=== PATIENT | female | born 2000 | race African-American/Black ===

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

== ENCOUNTER 2020-03-07 15:55 | Emergency (ER) | payer MEDICAID ==
[~2020-03-07] VITALS: Ht 165.1 cm; Wt 90.0 kg
[~2020-03-07 15:55] MED LIST changes: +NITR100C62 PO; +OMEP20CA16 PO
[2020-03-07 16:00] VITALS: BP 139/65
[2020-03-07 16:20] LABS: BILIRUBIN,URINE NEGATIVE (NEG); CLARITY,URINE CLOUDY; COLOR,URINE YELLOW; NITRITE,URINE NEGATIVE (NEG); PH,URINE 6.5 (<5.0-8.0); PROTEIN,URINE 30 mg/dL (NEG-TRACE)
[2020-03-07 16:28] LABS: BACTERIA,URINE FEW /HPF (0-FEW); RBC,URINE 0 /HPF (0-2); WBC,URINE 0 /HPF (0-4)
[2020-03-07] MEDS ORDERED: KETOROLAC 30 MG/ML VIAL. IM ONE (16:45)
--- NOTE | 2020-03-07 16:46 | PHYS DOC ---
Past Medical History Past Medical History: Asthma, Migraines Additional Past Medical Histor: Recent vaginal delivery 2 months ago (12/2019), no complications (GRAHAM YEN DO) Past Surgical History: (GRAHAM YEN DO) Smoking Status: Never Smoker Alcohol Use: None Drug Use: Marijuana (GRAHAM YEN DO) General Adult EDM: Chief Complaint: Vaginal Pain, Rectal Pain HPI: HPI: Patient is a 19 year old female who presents with vaginal and rectal pain. Patient noticed the vaginal pain last night when she was attempting intercourse with her partner. After stopping and rolling to her side patient felt a "coffman of sharp pain" in her vagina. Rectal pain also flared up around the same time. Pt states she had a history of internal hemorrhoids. She recently had an uncomplicated vaginal delivery 2 months ago. Denies vaginal bleeding, pruritus, or discharge, but she did note a "stronger odor". She feels like it's harder to pass gas. Straining and increases in intra-abdominal pressure worsens both vagin al and rectal pain. She rates her pain as 7/10. Denies abdominal pain, dysuria/hematuria, back pain, nausea/vomiting, diarrhea, or blood in stool. Denies fever, cough, congestion, or sick contacts. She has had the same partner with no previous STI, partner is asymptomatic. (GRAHAM YEN DO) Review of Systems: Review of Systems: Constitutional: Denies fever or chills Eyes: Denies redness or eye pain HENT: Denies nasal congestion or sore throat Respiratory: Denies cough or shortness of breath Cardiovascular: Denies chest pain or palpitations GI: +rectal pain. Denies abdominal pain, nausea, vomiting, or diarrhea. : +vaginal pain, +vaginal odor. Denies dysuria or hematuria Musculoskeletal: Denies back pain or joint pain Integument: Denies rash or skin lesions Neurologic: Denies headache, focal weakness or sensory changes Complete systems were reviewed and found to be within normal limits, except as documented in this note. (GRAHAM YEN DO) Family History: Family History: Non-contributory (GRAHAM YEN DO) Allergies: Allergies: Allergies Coded Allergies Type Severity Reaction Last Updated Verified No Known Drug Allergies 01/27/16 No (GRAHAM YEN DO) Physical Exam: PE: Constitutional: Well developed, well nourished, no acute distress, non-toxic appearance HENT: Normocephalic, atraumatic Eyes: Conjunctiva normal, no discharge Neck: Normal range of motion, supple Lungs & Thorax: No respiratory distress, equal chest rise and fall Abdomen: Soft, diffuse tenderness to palpation of lower abdomen R>L : normal external female genitalia, white, thick discharge present around cervical os, hyperemic cervical os, cervical tenderness, normal external rectum Skin: Warm, dry, no erythema, no rash Back: No tenderness, no CVA tenderness Extremities: No tenderness, ROM intact, no edema Neurologic: Alert and oriented X 3, no focal deficits noted Psychologic: Affect normal, judgment normal (GRAHAM YEN DO) Course & Med Decision Making: Course & Med Decision Making Pertinent Labs and Imaging studies reviewed. (See chart for details) Pt is a previously healthy 19 year old female who presents with 1 day history of vaginal and rectal pain that started after attempting vaginal intercourse. Given history of vaginal pain and odor, performed pelvic exam and swabbed for STIs and BV/trich/yeast. Cervical motion tenderness and thick, white discharge noted on pelvic exam. Empirically treated with ceftriaxone and azithromycin as chlamydia/gonorrhea. Cultures pending. UA negative. Wet mount negative. Pain addressed. Pelvic US pending at this time. Sign out given to Dr. Montano for further evaluation and final disposition. Discussed current findings and plan with patient, who acknowledges understanding and agreement. (GRAHAM YEN DO) Dragon Disclaimer: Dragon Disclaimer: This electronic medical record was generated, in whole or in part, using a voice recognition dictation system. (GRAHAM YEN DO) Departure Departure Impression: Primary Impression: Pelvic pain Disposition: 01 DC HOME SELF CARE/HOMELESS Condition: STABLE Referrals: NON,STAFF (PCP) Patient Instructions: Pelvic Pain, Female, [id number] Additional Instructions: Please follow up closely with your POWDER NIPPER for further evaluation. No sexual activity until cultures have resulted. Take over the counter Tylenol and/or Ibuprofen for pain or discomfort. GRAHAM YEN DO Mar 07, 2020 16:46 SORAYA MONTANO MD Mar 07, 2020 20:40
[2020-03-07 17:12] LABS: U PREG PATIENT NEGATIVE (NEG)
[2020-03-07] MEDS ORDERED: AZITHROMYCIN 250 MG TABLET. PO ONE (17:15)
[2020-03-07] MEDS ORDERED: cefTRIAXone IM 250 MG VIAL IM ONE (17:15)
--- NOTE | 2020-03-07 20:30 | RAD ---
EXAMINATION: US PELVIS W/TV (PELVIC ULTRASOUND) HISTORY: CMT, pelvic pain TECHNIQUE: Sonography of the pelvis was performed by transvaginal and transabdominal (limited) techni ques. COMPARISON: 05/11/2018 FINDINGS: Uterus: 7.0 x 5.6 x 4.4 cm - Myometrium: Normal sonographic appearance. - Endometrium: 7 mm - Cervix: Normal Right ovary: 5.0 x 3.2 x 2.5 cm - 1.3 cm cystic lesion with thick echogenic wall and small internal nondependent avascular hypoechoge nicity. Arterial and venous flow is present throughout the ovary on color Doppler imaging with normal spectral waveforms. Left ovary: 2.3 x 1.8 x 1.8 cm - Normal sonographic appearance. Arterial and venous flow is present throughout the left ovary on col or Doppler imaging with normal spectral waveforms. Incidentally noted 2.1 x 1.0 x 1.3 cm circumscribe d avascular echogenic lesion in the left adnexa. Pelvic free fluid: Mild free fluid which appears slightly complex, predominantly in the left pelvis. IMPRESSION: 1.3 cm cystic lesion in the right ovary as described, nonspecific but could represent a resolving hem orrhagic cyst. Indeterminate 2.1 cm left adnexal lesion and mild slightly complex pelvic free fluid. Correlate clinically and consider nonemergent pelvic MRI for further evaluation as indicated. Electronically signed by: Fitz Stone DO (03/07/2020 8:27 PM) [facility]
[2020-03-09 21:18] LABS: GC PROBE Negative (Negative)
== END 2020-03-07 20:45 | disposition home or self-care (01) ==
LOC: ER 15:55
DX: R10.2 Pelvic and perineal pain (principal); J45.909 Unspecified asthma, uncomplicated; G43.909 Migraine, unspecified, not intractable, without status migrainosus; F12.90 Cannabis use, unspecified, uncomplicated; Z98.890 Other specified postprocedural states
CPT/HCPCS: 76830; 76856; 81001; 81025; 87491; 87591; 96372; 99284; J0696; J1885; Q0111

== ENCOUNTER 2020-08-16 16:49 | Observation (INO) | payer MEDICAID ==
[2020-08-16] MEDS ORDERED: IV RINGERS,LACTATED 1000ML 1,000 ML IV SCH (17:15)
[2020-08-16 17:34] LABS: BILIRUBIN,URINE NEGATIVE (NEG); CLARITY,URINE CLEAR; COLOR,URINE YELLOW; NITRITE,URINE NEGATIVE (NEG); PH,URINE 7.5 (<5.0-8.0); PROTEIN,URINE NEGATIVE (NEG-TRACE); UROBILINOGEN,URINE 0.2 mg/dL (0.2 mg/dL)
[2020-08-16 17:41] LABS: BACTERIA,URINE FEW /HPF (0-FEW); RBC,URINE 0 /HPF (0-2)
== END 2020-08-16 18:25 | disposition home or self-care (01) ==
LOC: 3 SO LND 16:49
PROVIDERS: ADMIT Obstetrics & Gynecology; ATTEND Obstetrics & Gynecology
DX: O34.62 Maternal care for abnormality of vagina, second trimester (principal); O99.891 Other specified diseases and conditions complicating pregnancy; M54.5 Low back pain; Z3A.26 26 weeks gestation of pregnancy
CPT/HCPCS: 81001; G0378; G0379

== ENCOUNTER 2020-12-29 15:11 | Emergency (ER) | payer MEDICAID ==
[~2020-12-29] VITALS: Ht 165.1 cm; Wt 91.2 kg
[2020-12-29 17:20] VITALS: BP 139/63
--- NOTE | 2020-12-29 17:59 | PHYS DOC ---
Past Medical History Past Medical History: Asthma Additional Past Medical Histor: Recent vaginal delivery 2 months ago (12/2019), no complications (CLAUDE DEJESUS APRN) Past Surgical History: (CLAUDE DEJESUS APRN) Smoking Status: Never Smoker Alcohol Use: None Drug Use: Marijuana (CLAUDE DEJESUS APRN) General Adult EDM: Chief Complaint: OTHER COMPLAINTS HPI: HPI: Patient is a 20 year old female who presents with vaginal odor and itching for 2 weeks. Patient states that she gave vaginal 7 weeks ago. Patient's denying abdominal pain. Patient denies any concerns for STDs. Patient states "I was concerned I might have bacterial vaginosis". "I did use Vagisil mosn-svn-lequjea because I was feeling a little itchy but that did not help". Patient denies medical history. (CLAUDE DEJESUS APRN) Review of Systems: Review of Systems: ROS At least 10 ROS systems have been reviewed and are negative except as documented in the HPI. General: Negative except as outlined in HPI above. Skin: Negative except as outlined in HPI above. HEENT: Negative except as outlined in HPI above. Neck: Negative except as outlined in HPI above. Respiratory: Negative except as outlined in HPI above.. Cardiovascular: Negative except as outlined in HPI above. Abdomen: Negative except as outlined in HPI above. : Negative except as outlined in HPI above. Back/MSK: Negative except as outlined in HPI above. Neuro: Negative except as outlined in HPI above. Psych: Negative except as outlined in HPI above. (CLAUDE DEJESUS APRN) Heart Score: C/O Chest Pain: No Risk Factors: Risk Factors: DM, Current or recent (<one month) smoker, HTN, HLP, family history of CAD, obesity. Risk Scores: Score 0 - 3: 2.5% MACE over next 6 weeks - Discharge Home Score 4 - 6: 20.3% MACE over next 6 weeks - Admit for Clinical Observation Score 7 - 10: 72.7% MACE over next 6 weeks - Early Invasive Strategies (CLAUDE DEJESUS APRN) Allergies: Allergies: Allergies Coded Allergies Type Severity Reaction Last Updated Verified No Known Drug Allergies 01/27/16 No (CLAUDE DEJESUS APRN) Physical Exam: PE: Constitutional: Well developed, well nourished, no acute distress, non-toxic appearance. [] HENT: Normocephalic, atraumatic, bilateral external ears normal, oropharynx moist, no oral exudates, nose normal. [] Eyes: PERRLA, EOMI, conjunctiva normal, no discharge. [] Neck: Normal range of motion, no tenderness, supple, no stridor. [] Cardiovascular:Heart rate regular rhythm, no murmur [] Lungs & Thorax: Bilateral breath sounds clear to auscultation [] Abdomen: Bowel sounds normal, soft, no tenderness, no masses, no pulsatile masses. [] Skin: Warm, dry, no erythema, no rash. [] Back: No tenderness, no CVA tenderness. [] Extremities: No tenderness, no cyanosis, no clubbing, ROM intact, no edema. [] Neurologic: Alert and oriented X 3, normal motor function, normal sensory function, no focal deficits noted. [] Psychologic: Affect normal, judgement normal, mood normal. [] (CLAUDE DEJESUS APRN) Current Patient Data: Labs: Laboratory Tests Test 12/29/20 17:36 POC Urine HCG, Qualitative Hcg negative (Negative) Vital Signs: Vital Signs Date Time Temp Pulse Resp B/P (MAP) Pulse Ox O2 Delivery O2 Flow Rate FiO2 12/29/20 17:20 98.4 57 16 139/63 (88) 100 Room Air 98.4 (CLAUDE DEJESUS APRN) EKG: EKG: [] (CLAUDE DEJESUS APRN) Radiology/Procedures: Radiology/Procedures: [] (CLAUDE DEJESUS APRN) Course & Med Decision Making: Course & Med Decision Making Pertinent Labs and Imaging studies reviewed. (See chart for details) [] 20-year-old female presents with vaginal odor and itching. Patient had a vaginal 7 weeks ago. Patient denies any complications at that time. Patient's denying abdominal pain. Vaginal wet prep obtained. Wet prep positive for clue cells and altered jigar. Patient has bacterial vaginosis. Discussed results with patient. Patient sent home on prescription for Flagyl. Advised patient to take prescription in full and as directed. Patient states that she understands discharge instructions. Patient is hemodynamically stable upon disposition (CLAUDE DEJESUS APRN) Course & Med Decision Making I have reviewed and was available for consultation in the emergency department for this patient that was seen by midlevel provider. Agree with plan. Elton Jacobs DO (ELTON JACOBS DO) Leanne Disclaimer: Leanne Disclaimer: This electronic medical record was generated, in whole or in part, using a voice recognition dictation system. (CLAUDE DEJESUS APRN) Departure Departure Impression: Primary Impression: Bacterial vaginosis Disposition: HOME / SELF CARE / HOMELESS Condition: STABLE Referrals: NO PCP (PCP) Patient Instructions: Bacterial Vaginosis, [facility] Additional Instructions: You are seen in the emergency room for vaginal odor and itching. Your test results came back positive for bacterial vaginosis. I am sending you home prescription. Please make sure you take the antibiotic in full and as directed. Scripts Metronidazole (FLAGYL) 500 Mg Tablet 1 TAB PO BID for bacterial vaginosis for 7 Days, #14 TAB Prov: CALUDE DEJESUS APRN 12/29/20 CLAUDE DEJESUS APRN Dec 29, 2020 17:59 ELTON JACOBS DO Dec 30, 2020 01:16
[2020-12-29] MEDS ORDERED: METR500T PO (19:26)
== END 2020-12-29 19:32 | disposition home or self-care (01) ==
LOC: ER 15:11
DX: N76.0 Acute vaginitis (principal); B96.89 Other specified bacterial agents as the cause of diseases classified elsewhere; J45.909 Unspecified asthma, uncomplicated
CPT/HCPCS: 81025; 99284; Q0111

== ENCOUNTER 2021-02-12 13:37 | Emergency (ER) | payer MEDICAID ==
[~2021-02-12] VITALS: Ht 165.1 cm; Wt 90.5 kg
[~2021-02-12 13:37] MED LIST changes: +METR500T PO
[2021-02-12 14:29] VITALS: BP 142/90
--- NOTE | 2021-02-12 14:49 | PHYS DOC ---
Past Medical History Past Medical History: Asthma Additional Past Medical Histor: preeclampsia Past Surgical History: Smoking Status: Never Smoker Alcohol Use: Occasionally Drug Use: Marijuana Social History Narrative: occasional General Adult EDM: Chief Complaint: VAGINAL PROBLEM HPI: HPI: Patient is a 20-year-old female who presents to the emergency department today for vaginal odor, irritation and itching that started 2 days ago. Patient reports that she had these symptoms last month following her menses and was diagnosed with bacterial. Patient is exactly the same and she is on her menses currently. Patient denies any pain, vaginal discharge, fevers, abdominal pain, concern for STDs. Review of Systems: Review of Systems: Constitutional: See HPI GI: See HPI : See HPI Heart Score: C/O Chest Pain: N/A Risk Factors: Risk Factors: DM, Current or recent (<one month) smoker, HTN, HLP, family history of CAD, obesity. Risk Scores: Score 0 - 3: 2.5% MACE over next 6 weeks - Discharge Home Score 4 - 6: 20.3% MACE over next 6 weeks - Admit for Clinical Observation Score 7 - 10: 72.7% MACE over next 6 weeks - Early Invasive Strategies Allergies: Allergies: Allergies Coded Allergies Type Severity Reaction Last Updated Verified No Known Drug Allergies 02/12/21 No Physical Exam: PE: Constitutional: Well developed, well nourished, no acute distress, non-toxic appearance. [] HENT: Normocephalic, atraumatic, bilateral external ears normal, oropharynx moist, no oral exudates, nose normal. [] Eyes: PERRL, EOMI, conjunctiva normal, no discharge. [] Neck: Normal range of motion, no tenderness, supple, no stridor. [] Cardiovascular:Heart rate regular rhythm, no murmur [] Lungs & Thorax: Bilateral breath sounds clear to auscultation [] Abdomen: Bowel sounds normal, soft, no tenderness, no masses, no pulsatile masses. [] Skin: Warm, dry, no erythema, no rash. [] Back: No tenderness, no CVA tenderness. [] Extremities: No tenderness, no cyanosis, no clubbing, ROM intact, no edema. [] Neurologic: Alert and oriented X 3, normal motor function, normal sensory function, no focal deficits noted. [] Psychologic: Affect normal, judgement normal, mood normal. [] Current Patient Data: Labs: Laboratory Tests Test 02/12/21 14:25 02/12/21 14:47 Urine Collection Type Unknown Urine Color Yellow Urine Clarity Clear Urine pH 6.5 Urine Specific Agar 1.020 Urine Protein 30 mg/dL Urine Glucose (UA) Negative mg/dL Urine Ketones (Stick) Negative mg/dL Urine Blood Moderate Urine Nitrite Negative Urine Bilirubin Negative Urine Urobilinogen Dipstick 1.0 mg/dL Urine Leukocyte Esterase Moderate Urine RBC Occ /HPF Urine WBC 1-4 /HPF Urine Squamous Epithelial Cells Mod /LPF Urine Bacteria 0 /HPF Urine Mucus Slight /LPF Bedside Urine HCG, Qualitative Hcg negative Vital Signs: Vital Signs Date Time Temp Pulse Resp B/P (MAP) Pulse Ox O2 Delivery O2 Flow Rate FiO2 02/12/21 14:29 99.0 60 16 142/90 (107) 100 Room Air 99.0 EKG: EKG: [] Radiology/Procedures: Radiology/Procedures: [] Course & Med Decision Making: Course & Med Decision Making Pertinent Labs and Imaging studies reviewed. (See chart for details) Patient presents to the emergency department for vaginal fishy odor and itching and irritation. She reports that she had the symptoms when she had her menses last month and was diagnosed with bacterial vaginosis. Patient reports that this feels exact same she is on her menstrual cycle again. Patient does not have any concern for STDs. I discussed performing a pelvic exam and swabs with patient but she chose to forego that and perform self swab for bacterial vaginosis and STIs. Patient's wet prep was positive for bacterial vaginosis and yeast. Patient had moderate leukocytes,1-4 WBC, no bacteria but moderate squamous cells, no urinary symptoms, likely contamination. Patient be discharged home with medication to treat her bacterial vaginosis. She was educated on cautionary instructions regarding medication use. I discussed with patient all findings and diagnostic testing as well as the need to follow-up with PCP for further evaluation and treatment or return to the ER if any new or worsening symptoms. Strict return precautions were also discussed at length. Patient voiced understanding and agreement with the plan. Patient is hemodynamically stable at the time of disposition. Dragon Disclaimer: Dragon Disclaimer: This electronic medical record was generated, in whole or in part, using a voice recognition dictation system. Departure Departure Impression: Primary Impression: Bacterial vaginosis Disposition: HOME / SELF CARE / HOMELESS Condition: GOOD Referrals: NO PCP (PCP) Patient Instructions: Bacterial Vaginosis Additional Instructions: You were seen in the emergency department for vaginal odor and itching. You were positive for bacterial vaginosis. This will be treated with metronidazole. Take this medication completely. Do not drink any alcohol with this medication as it will cause severe vomiting. You were also tested for gonorrhea chlamydia in the emergency department. You will be notified via telephone of those results when they become available. Please do not have any sexual intercourse until you receive your results. Follow-up with your primary care provider within a week if your symptoms persist. Return to the emergency department if you develop intractable nausea or vomiting, pain with urination, hematuria, abdominal pain, back pain, high fevers refractory to treatment or any new or worsening concerns. Scripts Metronidazole (METRONIDAZOLE) 500 Mg Tablet 1 TAB PO BID for 7 Days, #14 TAB 0 Refills Prov: CAROL HENSLEY APRN 02/12/21 CAROL HENSLEY APRN Feb 12, 2021 14:49
[2021-02-12 14:57] LABS: BILIRUBIN,URINE NEGATIVE (NEG); CLARITY,URINE CLEAR; COLOR,URINE YELLOW; NITRITE,URINE NEGATIVE (NEG); PH,URINE 6.5 (<5.0-8.0); PROTEIN,URINE 30 mg/dL (NEG-TRACE)
[2021-02-12 15:06] LABS: BACTERIA,URINE 0 /HPF (0-FEW); RBC,URINE OCC /HPF (0-2)
[2021-02-12] MEDS ORDERED: METR-34 PO (15:47)
[2021-02-15 23:07] LABS: GC PROBE Negative (Negative)
== END 2021-02-12 16:05 | disposition home or self-care (01) ==
LOC: ER 13:37
DX: N76.0 Acute vaginitis (principal); B96.89 Other specified bacterial agents as the cause of diseases classified elsewhere; J45.909 Unspecified asthma, uncomplicated
CPT/HCPCS: 81001; 81025; 87086; 87491; 87591; 99283; Q0111

== ENCOUNTER 2021-03-28 16:12 | Emergency (ER) | payer MEDICAID ==
[~2021-03-28] VITALS: Ht 165.1 cm; Wt 88.0 kg
[~2021-03-28 16:12] MED LIST changes: +METR-34 PO
[2021-03-28 20:15] VITALS: BP 162/102
--- NOTE | 2021-03-28 20:36 | PHYS DOC ---
Past Medical History Past Medical History: Asthma Additional Past Medical Histor: preeclampsia (GERTRUDE BRADY APRN) Past Surgical History: (GERTRUDE BRADY APRN) Smoking Status: Never Smoker Alcohol Use: Occasionally Drug Use: Marijuana (GERTRUDE BRADY APRN) General Adult EDM: Chief Complaint: FLU SYMPTOM HPI: HPI: Patient is a 20-year-old female that presents today with feeling like her ears are clogged. Patient states that on March 18, 2020 when she was diagnosed with COVID-19, she states over the last 2 to 3 days she has had increased popping and clogged feeling in her ears. She states that she has been taking some pxqf-oqi-ssbxxsx decongestants not on a regular basis but taking them as needed and she said that have not been helping. She states she is also been using some drops in her ears to think with earwax and she says that has not been helping. (GERTRUDE BRADY APRN) Review of Systems: Review of Systems: Constitutional: Denies fever or chills. [] Eyes: Denies change in visual acuity. [] HENT: Feeling like her ear is clogged Respiratory: Denies cough or shortness of breath. [] Cardiovascular: Denies chest pain or edema. [] GI: Denies abdominal pain, nausea, vomiting, bloody stools or diarrhea. [] : Denies dysuria. [] Musculoskeletal: Denies back pain or joint pain. [] Integument: Denies rash. [] Neurologic: Denies headache, focal weakness or sensory changes. [] Endocrine: Denies polyuria or polydipsia. [] Lymphatic: Denies swollen glands. [] Psychiatric: Denies depression or anxiety. [] (GERTRUDE BRADY APRN) Heart Score: C/O Chest Pain: N/A Risk Factors: Risk Factors: DM, Current or recent (<one month) smoker, HTN, HLP, family history of CAD, obesity. Risk Scores: Score 0 - 3: 2.5% MACE over next 6 weeks - Discharge Home Score 4 - 6: 20.3% MACE over next 6 weeks - Admit for Clinical Observation Score 7 - 10: 72.7% MACE over next 6 weeks - Early Invasive Strategies (GERTRUDE BRADY APRN) Allergies: Allergies: Allergies Coded Allergies Type Severity Reaction Last Updated Verified No Known Drug Allergies 02/12/21 No (GERTRUDE BRADY APRN) Physical Exam: PE: Constitutional: Well developed, well nourished, no acute distress, non-toxic appearance. [] HENT: Normocephalic, atraumatic, bilateral external ears normal, oropharynx moist, no oral exudates, nose normal, tympanic membranes membranes bulging no erythema noted, no earwax noted in the left ear small amount of earwax noted in the right ear Eyes: PERRLA, EOMI, conjunctiva normal, no discharge. [] Neck: Normal range of motion, no tenderness, supple, no stridor. [] Cardiovascular:Heart rate regular rhythm, no murmur [] Lungs & Thorax: Bilateral breath sounds clear to auscultation [] Abdomen: Bowel sounds normal, soft, no tenderness, no masses, no pulsatile masses. [] Skin: Warm, dry, no erythema, no rash. [] Back: No tenderness, no CVA tenderness. [] Extremities: No tenderness, no cyanosis, no clubbing, ROM intact, no edema. [] Neurologic: Alert and oriented X 3, normal motor function, normal sensory function, no focal deficits noted. [] Psychologic: Affect normal, judgement normal, mood normal. [] (GERTRUDE BRADY APRN) EKG: EKG: [] (GERTRUDE BRADY APRN) Radiology/Procedures: Radiology/Procedures: [] (GERTRUDE BRADY APRN) Course & Med Decision Making: Course & Med Decision Making Pertinent Labs and Imaging studies reviewed. (See chart for details) [Talk with patient taking dazc-yll-jxkqppk decongestants to help with ear fullness. Patient will need to take them on a regular basis and I did discuss that with patient she verbalized understanding. (GERTRUDE BRADY APRN) Dragon Disclaimer: Dragon Disclaimer: This electronic medical record was generated, in whole or in part, using a voice recognition dictation system. (GERTRUDE BRADY APRN) Departure Departure Impression: Primary Impression: Otitis media Qualified Codes: H65.03 - Acute serous otitis media, bilateral Disposition: HOME / SELF CARE / HOMELESS Condition: STABLE Referrals: NO PCP (PCP) Patient Instructions: Otitis Media, Adult Additional Instructions: Tylenol and/or ibuprofen as needed for pain Qucq-vxn-qvianln decongestant such as Mucinex D take as labeled directed Zcpt-rfw-fmlstlb allergy medications such as Claritin or Zyrtec daily Vmyi-eke-mfmjkow nasal spray Flonase 2 sprays each nare twice daily Psts-gun-ahejxnd Afrin nasal spray as labeled directed x2 days only do not use past 2 days Follow-up with your primary care physician or one of the community clinics pr ovided in the brochure for further management after 5 to 7 days. Attending Signature Attending Signature I have reviewed the PA/STONEWORKING BELT SANDER's note and plan of care. I was available for consultation as needed during the patient's visit in the emergency department. I agree with the clinical impression, plan, and disposition. (GRAHAM YEN DO) GERTRUDE BRADY APRN Mar 28, 2021 20:36 GRAHAM YEN DO Mar 29, 2021 00:32
== END 2021-03-28 20:55 | disposition home or self-care (01) ==
LOC: ER 16:12
DX: H65.03 Acute serous otitis media, bilateral (principal); J45.909 Unspecified asthma, uncomplicated
CPT/HCPCS: 99282